=== PATIENT | female | born 1995 | race Caucasian/White ===

== ENCOUNTER 2016-06-29 00:06 | Emergency (ER) | payer OTHER ==
[~2016-06-29] VITALS: Ht 160 cm; Wt 65.9 kg
[2016-06-29 00:36] LABS: APPEARANCE,URINE CLOUDY (CLEAR); GLUCOSE, URINE (UA) NEGATIVE (NEGATIVE); KETONES,URINE NEGATIVE (NEGATIVE); LEUKOCYTE ESTERASE ,URINE MODERATE (NEGATIVE); OCCULT BLOOD,URINE LARGE (NEGATIVE); PH,URINE 5.5 (5.0-8.0); PROTEIN,URINE TRACE (NEGATIVE)
[2016-06-29 00:37] LABS: ADD UA MICROSCOPIC YES
[2016-06-29 00:48] LABS: WBC,URINE 26-50 /HPF (0-5)
[2016-06-29 00:49] LABS: SQUAMOUS EPITHELIAL CELL,UR Few /LPF (None Seen)
[2016-06-29 01:00] VITALS: BP 138/78
== END 2016-06-29 01:01 | disposition home or self-care (01) ==
LOC: EMS 00:07
DX: N39.0 Urinary tract infection, site not specified (principal)
CPT/HCPCS: 87086; 99284